=== PATIENT | male | born 1970 | race Caucasian/White ===

== ENCOUNTER 2017-11-20 05:02 | Inpatient (IN) ==
[2017-11-20 06:01] LABS: Basophils # 0.1 K/mcL (0.0-0.2); Basophils % 0.4 %; Eosinophils # 0.1 K/mcL (0.0-0.6); Eosinophils % 1.3 %; Hematocrit 44.3 % (37.5-50.1); Hemoglobin 15.7 g/dL (12.9-16.9); Immature Granulocytes % 0.2 % (0-4); Lymphocytes # 3.6 K/mcL (0.6-4.6); Mean Corpuscular HGB Conc 35.4 g/dL (31.6-35.5); Mean Corpuscular Hemoglobin 34.4 pg (28.0-33.3); Mean Corpuscular Volume 96.9 fL (83.0-100.0); Mean Platelet Volume 10.5 fL (9.4-12.4); Monocytes # 0.6 K/mcL (0.0-1.3); Monocytes % 5.5 %; Neutrophils # 6.8 K/mcL (1.6-8.9); Platelet Count 163 K/mcL (140-400); Red Blood Count 4.57 M/mcL (4.19-5.50); Red Cell Distribution Width 12.3 % (11.5-14.5); Segmented Neutrophils % 60.6 %
[2017-11-20] MEDS ORDERED: GI Cocktail 40 ML EACH PO ONE (06:03)
[2017-11-20] MEDS ORDERED: Aspirin 325 MG TABLET PO ONE (06:03)
[2017-11-20 06:07] LABS: Prothrombin Time 10.3 Seconds (9.4-12.1)
--- NOTE | 2017-11-20 06:08 | Emergency Department Note ---
Disposition Clinical Impression: NSTEMI (non-ST elevated myocardial infarction) Disposition: Admitted As Inpatient Condition: Good Referrals: Adriana Arana CNP [Primary Care Provider] - Forms: ED Satisfaction Letter Time of Disposition: 06:25 Chest Pain HPI - General Chief Complaint: ED Chest Pain Stated Complaint: chest tightness Source: patient Limitations: no limitations Vital Signs Reviewed: Yes Nursing Notes Reviewed: Yes - History of Present Illness HPI Narrative: This is a 47 year-old male with history of RA who presents with intermittent, "burning" substernal chest pain that began 1 day ago. Episodes last 5-15 minutes and seem to occur randomly, not clearly associated with exertion, breathing, or body position. At the time of evaluation, he is chest pain free. He denies any associated fever, cough, nausea, abdominal pain, or leg pain. He thought the pain might be heart burn, but Maalox didn't seem to help. He denies any history of HTN, DM, CAD, DVT, or PE. Pt complaint: chest pain Onset (ago): day(s) (1) Duration: intermittent Pain Location: substernal Severity: moderate Severity scale (1-10): 0 Quality: tightness (burning) Pain Radiation: back (interscapula) Improves with: nothing Worsens with: nothing Associated symptoms: Denies: nausea, vomiting, diaphoresis, sense of impending doom, syncope, palpitations, fever, cough, leg swelling - Related Data Allergies Allergy/AdvReac Type Severity Reaction Status Date / Time Penicillins Allergy See Verified 10/18/17 15:17 Comments All systems ED: reviewed and negative except as stated. Constitutional: Denies: fever Cardiovascular: Reports: as per HPI, chest pain, edema (bilateral pedal edema). Denies: palpitations Respiratory: Denies: cough, dyspnea Gastrointestinal: Denies: abdominal pain, nausea, vomiting Musculoskeletal: Reports: as per HPI Neurological: Denies: headache, weakness, numbness Chest Pain PMH - Past Medical History Medical history: Reports: arthritis, RA Psychiatric history: Reports: no psych history - Social History Smoking Status: Current every day smoker Alcohol use: Reports: rarely Drug use: Reports: none Physical Exam - General Limitations: no limitations General appearance: alert, in no apparent distress - Head Head exam: atraumatic, normocephalic - Eye Eye exam: Present: normal appearance - Neck Neck exam: Present: normal inspection - Chest Chest inspection: Present: normal inspection - Respiratory Respiratory exam: Present: normal lung sounds bilaterally. Absent: respiratory distress, wheezes - Cardiovascular Cardiovascular exam: Present: regular rate, normal rhythm, normal heart sounds - Abdominal Exam Abdominal exam: Present: soft, Non-Tender. Absent: distention - Extremities Exam Extremities exam: Present: normal inspection. Absent: calf tenderness - Neurological Exam Neurological exam: Present: alert, oriented X3. Absent: motor sensory deficit - Psychiatric Psychiatric exam: Present: normal affect, normal mood - Skin Skin exam: Present: warm, dry, intact Course - Reevaluation(s) Reevaluation #1: Patient remains CP-free. Discussed elevated troponin and treatment plan. Patient is in agreement with admission. Time: 06:33 - Consultations Consultation #1: Reviewed case with Dr. Yadav, and he has accepted patient for admission. Time: 06:36 Vital Signs Temperature 97.7 F 11/20/17 05:06 Pulse Rate 84 11/20/17 05:06 Respiratory Rate 18 11/20/17 05:06 Blood Pressure 142/92 11/20/17 05:06 O2 Sat by Pulse Oximetry 98 11/20/17 05:06 Temperature 97.7 F 11/20/17 05:06 Pulse Rate 84 11/20/17 05:06 Respiratory Rate 18 11/20/17 05:06 Blood Pressure 142/92 11/20/17 05:06 O2 Sat by Pulse Oximetry 98 11/20/17 05:06 Oxygen Delivery Oxygen Delivery Room Air Chest Pain - Lab Data Result diagrams: 11/20/17 05:21 11/20/17 05:21 Lab Results 11/20/17 11/20/17 11/20/17 Range/Units 05:21 05:21 05:21 WBC 11.2 H (4.3-11.1) K/mcL RBC 4.57 (4.19-5.50) M/mcL Hgb 15.7 (12.9-16.9) g/dL Hct 44.3 (37.5-50.1) % MCV 96.9 (83.0-100.0) fL MCH 34.4 H (28.0-33.3) pg MCHC 35.4 (31.6-35.5) g/dL RDW 12.3 (11.5-14.5) % Plt Count 163 (140-400) K/mcL MPV 10.5 (9.4-12.4) fL Immature Gran % 0.2 (0-4) % Seg Neutrophils % 60.6 % Lymphocytes % 32.0 % Monocytes % 5.5 % Eosinophils % 1.3 % Basophils % 0.4 % Neutrophils # 6.8 (1.6-8.9) K/mcL Lymphocytes # 3.6 (0.6-4.6) K/mcL Monocytes # 0.6 (0.0-1.3) K/mcL Eosinophils # 0.1 (0.0-0.6) K/mcL Basophils # 0.1 (0.0-0.2) K/mcL PT 10.3 (9.4-12.1) Seconds INR 1.0 APTT 53.7 H (26.0-36.0) Seconds Sodium 138 (136-145) mEq/L Potassium 4.1 (3.5-5.1) mEq/L Chloride 107 (98-107) mEq/L Carbon Dioxide 22 L (23-29) mEq/L BUN 15 (6-20) mg/dL Creatinine 0.99 (0.70-1.30) mg/dL Est GFR ( Amer) > 60 (> 60) Est GFR (Non-Af Amer) > 60 (> 60) BUN/Creatinine Ratio 15 (6-26) Glucose 107 H (70-105) mg/dL Calculated Osmolality 287 (280-300) Calcium 9.4 (8.6-10.3) mg/dL Troponin I 1.36 H* (< 0.04) ng/mL - Radiology Data Radiology results reviewed: Yes I reviewed the patient's radiology results. XR/XR chest 1V portable IMPRESSION: No acute cardiopulmonary disease. - EKG Data EKG attestation: Yes I reviewed and interpreted this EKG. EKG shows normal: sinus rhythm, axis, intervals, QRS complexes, ST-T waves Interpretation: normal EKG
[2017-11-20 06:09] LABS: Activated Partial Thrombo Time 53.7 Seconds (26.0-36.0)
[2017-11-20 06:21] LABS: BUN/Creatinine Ratio 15 (6-26); Blood Urea Nitrogen 15 mg/dL (6-20); Calcium 9.4 mg/dL (8.6-10.3); Carbon Dioxide 22 mEq/L (23-29); Chloride 107 mEq/L (98-107); Glucose 107 mg/dL (70-105); Osmolality,Calculated 287 (280-300); Potassium 4.1 mEq/L (3.5-5.1); Sodium 138 mEq/L (136-145); eGFR For African Americans > 60 (> 60); eGFR For Non-African Americans > 60 (> 60)
[2017-11-20 06:24] LABS: Troponin I 1.36 ng/mL (< 0.04)
[2017-11-20] MEDS ORDERED: *HR* Heparin 5,000 UNIT/ML VIAL IVP ONE ×2 (06:26→06:30)
[2017-11-20] MEDS ORDERED: Heparin 25,000 UNIT/500 ML D5W 25,000 UNIT/500 ML BAG IVC SCH (06:30)
[2017-11-20] MEDS ORDERED: *HR* OxyCODONE Immed Rel 15 MG TABLET PO PRN (07:29)
[2017-11-20] MEDS ORDERED: Acetaminophen 325 MG TABLET PO PRN (07:32)
[2017-11-20] MEDS ORDERED: Naloxone 0.4 MG/ML INJ IVP PRN (07:32)
[2017-11-20] MEDS: Nicotine 21 MG PATCH.TD24 TD SCH (09:27)
[2017-11-20] MEDS: 0.9 % Sodium Chloride 1,000 ML IVC SCH ×2 (09:28→21:43)
--- NOTE | 2017-11-20 09:47 | Internal Med History&Physical ---
Date of Encounter: 11/20/17 Time of Encounter: 07:37 Internal Medicine - H&P: HPI Chief complaint: "Chest pain" Admitted From: Emergency Dept Plans for Post Hospital Care: Home History of present illness: Mr. Hu is a 47 year old male with PMH of rheumatoid arthritis who presented to ED today with 2-day history of chest pain. He describes the pain as an intermittent "burning" substernal chest pain. Pain started suddenly yesterday and has been episodic. Pain radiates to back "between shoulder blades." There are no associated symptoms. He denies jaw pain, diaphoresis, or SOB. He has never had pain like this before. He is current 1.5 pack/day smoker. Mother had [place] in 30s. He initially thought the pain was heartburn, but maalox provided no relief. In the ED, EKG was NSR without any other changes. Initial troponin was elevated at 1.36. He had chest pain in ED earlier, but none at this time. CXR showed no acute cardiopulmonary process. He received aspirin and was started on heparin drip. He has no complaints at this time. Past Med Surg Social Fam HX - Past Medical History Attestation: Yes The following information was validated with the patient. Source: patient Medical history: arthritis, RA Psychiatric history: no psych history - Past Surgical History Surgical History: no surgical history Additional surgical history: bilateral hip replacement - Social History Smoking Status: Current every day smoker Packs per day: 1 Smokeless Tobacco Status: No Alcohol use: rarely Drug use: none - Family History Father Hx Family Cardiac Disorders: Yes Hx Family Cancer: Yes Mother Hx Family Cardiac Disorders: Yes Hx Family Endocrine Disorder: Yes - Additional Family History Additional family history: Family history reviewed with patient. Internal Medicine - H&P: Meds Celecoxib [Celebrex] 200 mg PO BID 11/20/17 [History] Certolizumab Pegol [Cimzia] 200 mg SQ QMONTH 11/20/17 [History] Cyclobenzaprine [Flexeril] 10 mg PO BID PRN 11/20/17 [History] Esomeprazole Magnesium [Nexium] 40 mg PO DAILY 11/20/17 [History] Oxycodone HCl [Oxycodone HCl] 15 mg PO TID PRN 11/20/17 [History] 3 Allergy/AdvReac Type Severity Reaction Status Date / Time Penicillins Allergy See Verified 11/20/17 06:51 Comments All Systems PM: A 10-system review of systems was performed and is negative for pertinent findings except as documented above in the HPI. - Constitutional Vitals: Temp Pulse Resp BP Pulse Ox 97.7 F 75 18 118/71 98 11/20/17 07:43 11/20/17 07:43 11/20/17 07:43 11/20/17 07:43 11/20/17 07:43 General appearance: Present: cooperative, A&O X 3, pleasant, no acute distress, answers questions appropriately - Head Head exam: Present: atraumatic, normal inspection, normocephalic - Eye Eye exam: Present: EOMI, PERRL. Absent: conjunctival injection, nystagmus, scleral icterus - ENT ENT exam: Present: mucous membranes moist, normal external ear exam, normal oropharynx - Neck Neck exam general surgery: Present: supple, trachea midline. Absent: lymphadenopathy, tenderness, thyromegaly - Respiratory Respiratory exam: Present: CTAB. Absent: accessory muscle use, rales, rhonchi, wheezes Additional comments: Normal WOB - Cardiovascular Cardiovascular exam: Present: RRR, +S1, +S2. Absent: diastolic murmur, gallop, rubs, systolic murmur Additional comments: No BLE edema - GI/Abdominal GI/Abdominal exam: Present: normal bowel sounds, soft. Absent: distended, hepatomegaly, mass, splenomegaly, tenderness - Neurological Exam Neurological exam: Present: alert, CN II-XII intact, oriented X3, no focal deficits, strengths equal and symetr throughout. Absent: motor sensory deficit , facial droop, speech deficit - Psychiatric Psychiatric exam: Present: normal affect, normal mood. Absent: agitated, anxious, depressed - Skin Skin exam: Present: dry, intact, warm. Absent: cyanosis, rash Internal Med - H&P Results - Labs CBC & Chem 7: 11/20/17 05:21 11/20/17 05:21 - Assessment and plan (1) NSTEMI (non-ST elevated myocardial infarction) Current Visit: Yes Status: Acute Assessment and plan: Admit for observation with telemetry. Initial troponin = 1.36. EKG unremarkable. Strong family history of CAD in mother at young age. Trend troponin x 3. Obtain ECHO. Continue aspirin and heparin drip. Cardiology consulted; appreciate input. Will await further recommendations. (2) Tobacco dependence Current Visit: Yes Status: Chronic Assessment and plan: Counselled for 5 minutes on smoking cessation. Start nicotine transdermal 21 mg QD. (3) Rheumatoid arthritis Current Visit: Yes Status: Chronic Assessment and plan: Continue home medications. Qualifiers: Rheumatoid arthritis location: unspecified site Rheumatoid factor presence : unspecified presence Qualified Code(s): M06.9 - Rheumatoid arthritis, unspecified (4) DVT prophylaxis Current Visit: Yes Status: Acute Assessment and plan: Heparin drip as per above. Start SCDs. - Time Spent With Patient Total time spent is greater than 50% in coordination of care (as documented) at patient's floor/unit and/or counseling patient: less than 15 minutes
--- NOTE | 2017-11-20 10:03 | Electrocardiograph Report ---
[place] [id number] Test Date: 2017-11-20 Pat Name: Gerry Hu Department: 103 Room: 2A11 Gender: M Vessel Engineer: SANTO : 1970 Requested By: Juan Martinez Order Number: [id number] Reading MD: Nick Parnell Measurements Intervals [place] Rate: 78 P: 64 PA: 181 QRS: 46 QRSD: 94 T: 11 QT: 359 QTc: 392 Interpretive Statements SINUS RHYTHM Electronically Signed On 11-20-2017 10:01:52 EDT by Nick Parnell
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
--- NOTE | 2017-11-20 11:34 | Pre-Sedation Evaluation ---
Pre-sedation evaluation - Pre-sedation checklist Date of procedure: 11/20/17 Procedure: [facility] Recent Vitals: Last Vital Signs Temp 97.7 F 11/20/17 07:43 Pulse 75 11/20/17 07:43 Resp 18 11/20/17 07:43 BP 118/71 11/20/17 07:43 Pulse Ox 98 11/20/17 07:43 H&P (including ROS) documented in medical record: Yes Previous reaction to sedatives/anesthetics: No Dietary Status: No solid food in preceding 4 hrs and no liquid in preceding 2 hrs Dentition: No loose teeth or bridges ASA Classification *see protocol: CLASS II-Mild systemic disease Plan of Care: Pt appropriate candidate for procedure/moderate/conscious sedation , Risks/benefits of procedure/sedation discussed w/ patient/family
[2017-11-20 12:57] LABS: Activated Partial Thrombo Time 175.9 Seconds (26.0-36.0)
[2017-11-20 13:16] LABS: Heparin anti-factor XA UFH 0.35 IU/mL (0.30-0.70)
[2017-11-20] MEDS ORDERED: Verapamil 5 MG/2 ML VIAL ONE (13:46)
[2017-11-20] MEDS ORDERED: 0.9 % Sodium Chloride 1,000 ML ONE ×2 (13:46→14:01)
[2017-11-20] MEDS ORDERED: *HR* Heparin 10,000 UNIT/10 ML VIAL ONE (13:47)
[2017-11-20] MEDS ORDERED: Heparin 1,000 UNITS/500 mL 500 ML ONE (13:47)
[2017-11-20] MEDS ORDERED: ISOVUE-370 200 ML INFUS..BTL IV ONE (13:47)
[2017-11-20] MEDS ORDERED: Nitroglycerin 1,000 MCG/10 ML VIAL IV ONE (13:47)
[2017-11-20] MEDS ORDERED: *HR* FentaNYL (PF) 100 MCG/2 ML VIAL ONE (14:06)
[2017-11-20] MEDS ORDERED: *HR* Midazolam HCl 2 MG/2 ML VIAL ONE ×3 (14:06→14:40)
[2017-11-20] MEDS ORDERED: Tirofiban 12.5 MG/250ML 12.5 MG/250 ML BAG ONE (14:36)
[2017-11-20] MEDS ORDERED: Ondansetron 4 MG/2 ML VIAL IVP PRN (14:58)
[2017-11-20] MEDS ORDERED: Tirofiban 12.5 MG/250ML 12.5 MG/250 ML BAG IVC SCH (15:00)
[2017-11-20] MEDS ORDERED: *HR* Ticagrelor 90 MG TABLET ONE (15:00)
--- NOTE | 2017-11-20 15:16 | Invasive Diagnostic Lab Proc ---
Name: Gerry Hu Date of Study: 11/20/2017 Date: 1970 Ht: 70.0in Medical Record#: [id number] Age: 47 Wt: 185.41lb Gender: Male BSA: 2.02 Order #: [id number] BMI: 26.6 Physicians Procedure Physician: Bubba Rodriguez MD, [facility] Referring MD: Referring MD: Staff Name Position Time In Nilson, Tyler RN Monitor 02:09 PM Jackie Stratton RN Agriculture Specialist 02:10 PM Kylah Fulton RT (R) Scrub 02:10 PM Sangeetha, Kylah RT (R) Scrub 02:11 PM Indications Indication Non-Stemi Procedures Performed Procedure L HRT ARTERY/VENTRICLE ANGIO PRQ CARD WINNIE STENT W/ANGIO 1 VSL Pre-Procedure Checklist Informed consent is complete signed and on chart. H&P is on chart. ID band is on and ID verified with patient. Patient NPO for procedure The procedure was described for the patient and questions were answered. Blood Pressure: 118/71 ECG is on chart. Plan of Care Patient will tolerate the procedure without complications. Adequate level of comfort will be maintained. Hemodynamics will remain stable Patient will recover from procedure without complications. Respiratory function will be maintained. Cardiac rhythm will remain stable. Patient temperature will be maintained. Patient and/or family have verbalized understanding of the procedure. Patient Education Chief Complaint/Reason for Test: Cardiac Cath Developmental Category: Adult (18-64 years) Developmentally Appropriate for Age: Yes Learning Barriers: None Education Needs: Procedure Education Method: Verbal Information Taught: Cardiac Cath Educational Evaluation: Able to repeat information Intravenous Access Time IV Size Location DC'd Fluid/Drip Rate Units RN 18g 1 /" Patent On Arrival Rt Antecubital 0.9NaCl Jackie Stratton RN Allergies Penicillin PCN Penicillins Vital Signs Time BP (mmHg) HR (bpm) O2 Sat. RR (bpm) LOC 10:19 AM 118 / 71 75 98 % 18 5 = Fully awake and oriented or at pre-proc level 02:12 PM / % 5 = Fully awake and oriented or at pre-proc level 02:12 PM / % 4 = Oriented but drowsy 02:27 PM / % 4 = Oriented but drowsy 02:42 PM / % 4 = Oriented but drowsy 02:10 PM 147 / 97 78 100 % 02:15 PM 152 / 92 88 100 % 02:20 PM 146 / 89 80 100 % 02:25 PM 131 / 80 81 99 % 02:30 PM 139 / 85 77 100 % 02:35 PM 142 / 91 79 100 % 02:41 PM 161 / 100 82 100 % 02:45 PM 143 / 88 78 100 % 02:50 PM 137 / 87 75 99 % Procedural Medications Time Medication Dose Units Method Given By 02:10 PM Oxygen 2 L/min nasal cannula Jackie Stratton RN 02:11 PM Versed 2 mg Intravenous Jackie Stratton RN 02:11 PM Fentanyl 50 mcg Intravenous Jackie Stratton RN 02:18 PM Lidocaine 2% 0.5 ml Subcutaneous Bubba Rodriguez MD, FAC 02:20 PM Heparin 4000 units Nitroglycerin 200 mcg Verapamil 2.5 mg Intraarterial Bubba Rodriguez MD, FAC 02:20 PM Versed 2 mcg Intravenous Jackie Stratton RN 02:20 PM Fentanyl 25 mcg Intravenous Jackie Stratton RN 02:38 PM Nitroglycerin 200 mcg Intracoronary Bubba Rodriguez MD 02:38 PM Aggrastat Bolus: 42 ml Intravenous Jackie Stratton RN 02:39 PM Aggrastat 12.5mg/250ml 15 ml/hr Intravenous Jackie Stratton RN 02:42 PM Versed 1 mg Intravenous Jackie Stratton RN 02:43 PM Fentanyl 25 mcg Intravenous Jackie Stratton RN 02:48 PM Brilinta 180 mg Orally Jackie Stratton RN ASA Classification: CLASS II- Mild systemic disease (i.e. well-controlled diabetes, hypertension, asthma, cigarette smoking) Abi Score Preprocedure Postprocedure Activity 2- Moves 4 extremities sustained head lift Activity 2- Moves 4 extremities sustained head lift Circulation 2- SBP +/= 20 points of pre-anesthetic level Circulation 2- SBP +/= 20 points of pre-anesthetic level Consciousness 2- Awake and alert oriented x 3 Consciousness 2- Awake and alert oriented x 3 O2 Saturation 2- Able to maintain O2 satruation of 92% on room air O2 Saturation 2- Able to maintain O2 satruation of 92% on room air Respiratory 2- Able to deep breathe and cough well Respiratory 2- Able to deep breathe and cough well Total Score 10 Total Score 10 Contrast Agent: Isovue Diagnostic Contrast: 76 ml Total Contrast: 76 ml Fluoro Dose: 365 mGy Activated Clotting Time Time Seconds to Clot 02:44 PM Procedure Log Time Note Enter By 02:01 PM Pt arrived to research laboratory specialist 2 at 14:01 tsites 02: PM Physician arrived 14: tsites 02: PM Meet and greet completed tsites 02: PM Sign in performed according to hospital policy. tsites 02:01 PM Procedure start 14: tsites 02: PM CathStat 02:09 PM Vitals capture started with the following parameters, Patient=Adult, Interval=5 min, Initial Fjaxyctw=749 mmHg, Deflation Rate=5 mmHg, Cuff placed on Right Arm 02:10 PM Tyler Devine RN Position: Monitor Time in: 14:09 tsites 02:10 PM Jackie Stratton RN Position: Agriculture Specialist Time in: 14:10 tsites 02:10 PM Kylah Fulton RT (R) Position: Scrub Time in: 14:10 tsites 02:10 PM Hair removed from procedure site in procedure lab using clippers. Right wrist/right groin prepped with Chloraprep by Jackie Stratton RN, then patient was draped. Skin intact. tsites 02:10 PM Time: 14:10 Oxygen on at 2 L/min per nasal cannula by Jackie Stratton RN tsites 02:10 PM HR=78 bpm, XOOW=026/97 mmhg, VbF8=696.0 %, Comment=nsr 02:10 PM Patient charges- Angio tray pack, Navilyst 3mm J, Pulse Oximetry and ACIST tubing and transducer tsites 02:11 PM Time: 14:11 Versed 2 mg Intravenous Given by Jackie Stratton RN tsites 02:11 PM Time: 14:11 Fentanyl 50 mcg Intravenous Given by Jackie Stratton RN tsites 02:11 PM Kylah Vivas RT (R) Position: Scrub Time in: 14:11 tsites 02:12 PM Time: 14:12 Patient comfortable and pain free: Yes tsites 02:12 PM Time: 14:12LOC: 5 = Fully awake and oriented or at pre-proc level tsites 02:12 PM Clinical Presentation: Non-STEMI tsites 02:15 PM HR=88 bpm, PTQC=814/92 mmhg, KjJ2=335.0 %, Comment=nsr 02:16 PM Time out performed according to hospital policy tsites 02:18 PM Time: 14:18 0.5 ml Lidocaine 2% to right radial Subcutaneous Given by Bubba Rodriguez MD, [facility] tsites 02:18 PM ASA Class CLASS II- Mild systemic disease (i.e. well-controlled diabetes, hypertension, asthma, cigarette smoking) tsites 02:20 PM Access obtained by percutaneous puncture. 6Fr 11cm Terumo Glidesheath sheath placed in right Radial artery. [id number] tsites 02:20 PM Time: 14:20 Patient given 4,000 units Heparin, 200 mcg Nitroglycerin, and 2.5 mg Verapamil Intraarterial by Bubba Rodriguez MD, [facility]. This is given to reduce risk of vessel spasm and thrombosis. tsites 02:20 PM HR=80 bpm, FTHE=927/89 mmhg, TeM3=036.0 %, Comment=nsr 02:20 PM Time: 14:20 Versed 2 mcg Intravenous Given by Jackie Stratton RN tsites 02:20 PM Time: 14:20 Fentanyl 25 mcg Intravenous Given by Jackie Stratton RN tsites 02:20 PM 5Fr TIG catheter inserted over the wire [facility] tsites 02:20 PM Pressure channel 1 zeroed. 02:23 PM LCA angiography performed in multiple views. tsites 02:23 PM Recorded Pressure: Ao, HR=83, Condition=Condition 1 (Aorta) Ao 93/70/81 02:24 PM catheter repositioned to RCA tsites 02:25 PM RCA angiography performed in multiple views. tsites 02:25 PM HR=81 bpm, BCKT=178/80 mmhg, SpO2=99.0 %, Comment=nsr 02:25 PM Lesion found in Mid RCA. Pre Stenosis: 99 Pre MICHELINE Flow: 2: Partial Flow/Perfusion (> 1 but < 3) tsites 02:26 PM Right Coronary, Right Posterior Descending Arteries with Right Posterolateral and Acute Marginal branches with 99 % stenosis. If graft is supplying this area, 0 % stenosis tsites 02:26 PM PCI Status Urgent tsites 02:26 PM PCI Indication: PCI for high risk Non-STEMI or unstable angina tsites 02:26 PM Catheter removed tsites 02:26 PM Inflation device was opened. tsites 02:27 PM Time: 14:12LOC: 4 = Oriented but drowsy tsites 02:27 PM Time: 14:12 Patient comfortable and pain free: Yes tsites 02:28 PM 5Fr Pigtail catheter inserted over the wire DNC tsites 02:29 PM Catheter selectively placed in left ventricle tsites 02:29 PM Recorded Pressure: LV, HR=84, Condition=Condition 1 (Left Ventricle) LV 108/-6/1 02:29 PM Bolus angiogram of left Ventricle complete: 10 ml/sec for a total of 20 mls tsites 02:30 PM .014 [place] 190cm guide wire across target lesion- successful. reused? No tsites 02:30 PM HR=77 bpm, PFQT=616/85 mmhg, DoS4=918.0 %, Comment=nsr 02:30 PM 6Fr RBR 3.5 Convey guide catheter was used to cannulate the PCI vessel successfully. reused? No tsites 02:30 PM Pressure channel 1 zero failed. 02:30 PM Pressure channel 1 zero failed. 02:30 PM Pressure channel 1 zeroed. 02:30 PM Recorded Pressure: LV, HR=83, Condition=Condition 1 (Left Ventricle) LV 134/16/23 02:31 PM Recorded Pressure: LV, Ao, HR=82, Condition=Condition 1 (Left Ventricle) LV 138/19/27, (Aorta) Ao 139/92/113 02:32 PM Lesion found in Mid LAD. Pre Stenosis: 40 Pre MICHELINE Flow: tsites 02:32 PM Lesion found in Distal LAD. Pre Stenosis: 60 Pre MICHELINE Flow: tsites 02:32 PM Mid/Distal Left Anterior Descending Coronary Artery and diagonal branches with 60% stenosis. If graft is supplying this area, 0 % stenosis tsites 02:33 PM Recorded Pressure: Ao, HR=79, Condition=Condition 1 (Aorta) Ao 136/99/115 02:35 PM HR=79 bpm, NMVE=126/91 mmhg, TiI2=826.0 %, Comment=nsr 02:35 PM At 14:35 the ACT was >400 seconds. tsites 02:35 PM 2.0 mm x 15 mm Emerge Monorail balloon across target lesion- successful. reused? No tsites 02:37 PM Recorded Pressure: Ao, HR=83, Condition=Condition 1 (Aorta) Ao 128/98/112 02:37 PM Balloon inflated @ 10 anuj for 12 seconds tsites 02:38 PM Time: 14:38 Nitroglycerin 200 mcg Intracoronary Given by Bubba Rodriguez MD tsites 02:39 PM Time: 14:38 Aggrastat Bolus: 42 ml Intravenous Given by Jackie Stratton RN Patterson pump tsites 02:40 PM Time: 14:39 Aggrastat 12.5mg/250ml 15 ml/hr Intravenous Given by Jackie Stratton RN Patterson pump tsites 02:40 PM Balloon catheter removed intact. tsites 02:41 PM HR=82 bpm, TQMF=876/100 mmhg, SxY8=537.0 %, Comment=nsr 02:41 PM 3.0mm x 20mm Synergy drug-eluting stent across target lesion- successful Lot #[id number] tsites 02:41 PM Stent deployed @ 15 anuj for 23 seconds tsites 02:42 PM Time: 14:27 Patient comfortable and pain free: Yes tsites 02:42 PM Time: 14:27LOC: 4 = Oriented but drowsy tsites 02:43 PM Time: 14:42 Versed 1 mg Intravenous Given by Jackie Stratton RN tsites 02:43 PM Time: 14:43 Fentanyl 25 mcg Intravenous Given by Jackie Stratton RN tsites 02:43 PM Stent delivery system removed intact. tsites 02:44 PM Guide catheter removed intact. tsites 02:44 PM Guide wire removed intact. tsites 02:45 PM HR=78 bpm, JYHV=475/88 mmhg, OvB2=125.0 %, Comment=nsr 02:46 PM Procedure completed at 14:46 tsites 02:46 PM Did you address MICHELINE flow and Dominance? Yes tsites 02:47 PM Coronary Dominance: right tsites 02:48 PM Sign out completed: Radiation Dose 365 mGy Fluoro Time: 4.3 Isovue 370 - 200ml contrast 76 ml given by Bubba Rodriguez MD, [facility]. Complications: NoneCardiac Rehab Consult needed: YesConfirmed administered medications: Yes tsites 02:48 PM Time: 14:48 Brilinta 180 mg Orally Given by Jackie Stratton RN tsites 02:49 PM Isovue 370 - 200ml,1 Bottle(s) used. tsites 02:49 PM Arterial sheath pulled, Vasc Band closure device used and was Successful S/N. tsites 02:49 PM 12 ml air in Vasc Band. tsites 02:49 PM Estimated Blood Loss: less than 20cc tsites 02:49 PM Post ECG NSR tsites 02:49 PM Post Blood Pressure 143/88 tsites 02:49 PM 14:49 Post Pulses Bilateral DP & PT 2+ tsites 02:50 PM Information taught Cardiac Cath, PCI, and Vasc Band tsites 02:50 PM HR=75 bpm, CJOG=881/87 mmhg, SpO2=99.0 %, Comment=nsr 02:50 PM Education needs Procedure, Plan of Care, and Responsibilities of Patient in Care tsites 02:50 PM Learning barriers :None tsites 02:53 PM Education Methods Verbal tsites 02:53 PM Education evaluation Able to repeat information tsites 02:53 PM Site status No bleeding/hematoma - Rt Wrist as reported by Sites, Kylah RT (R) at 14:53 tsites 02:55 PM Report given to Sravani DOMINGUEZ Pt taken to 2A Room #11. 14:54 tsites 02:55 PM Plavix, Effient or Brilinta given Yes tsites 02:55 PM Patient out of room: 14:55 tsites 02:55 PM Family placed in consult room. tsites 02:55 PM Complications: None tsites 02:55 PM Fluoro Time: 4.3 tsites 02:58 PM Isovue 370 - 200ml contrast 76 ml given by Bubba Rodriguez. tsites 02:58 PM Time: 14:42LOC: 4 = Oriented but drowsy tsites 02:58 PM Time: 14:42 Patient comfortable and pain free: Yes tsites 02:58 PM Radiation Dose 365 mGy tsites 03:04 PM Lesion found in Right PDA. Pre Stenosis: 80 Pre MICHELINE Flow: tsites Complications Complication None None Hemodynamics Pressures Site Systolic/A Wave Diastolic/V Wave Mean AO 93 70 81 LV 108 -6 1 LV 134 16 23 LV 138 19 27 AO 139 92 113 AO 136 99 115 AO 128 98 112 Post Procedure Information Blood Pressure: 143/88 mmHg Rhythm: NSR Post procedural instructions were given Closure Device Time Device Success/Fail 11/20/2017 2:45:00 PM Mechanical Compression Successful Site Checks Time Location Status Staff Sheath In? Note 02:53 PM Rt Wrist No bleeding/hematoma Sites, Kylah RT (R) Pulses Time Site Pre-Procedure Post-Procedure Note 11/20/2017 10:18:00 AM Bilateral DP 2+ 11/20/2017 10:19:00 AM Bilateral radial 2+ 2:49:00 PM Bilateral DP & PT 2+ Updated by Kylah Vivas, RT (R) on 11/20/2017 3:07:33 PM Kylah Vivas RT electronically signed on 11/20/2017 3:08:35 PM with status of Final
[2017-11-20 18:33] LABS: Troponin I 5.79 ng/mL (< 0.04)
[2017-11-20] MEDS: *HR* Ticagrelor 90 MG TABLET PO SCH (21:43)
[2017-11-21 00:42] LABS: Basophils % 0.4 %; Eosinophils # 0.1 K/mcL (0.0-0.6); Eosinophils % 1.4 %; Hematocrit 39.2 % (37.5-50.1); Immature Granulocytes % 0.2 % (0-4); Lymphocytes # 3.2 K/mcL (0.6-4.6); Lymphocytes % 38.1 %; Mean Corpuscular HGB Conc 34.9 g/dL (31.6-35.5); Mean Corpuscular Hemoglobin 33.8 pg (28.0-33.3); Mean Corpuscular Volume 96.8 fL (83.0-100.0); Mean Platelet Volume 10.4 fL (9.4-12.4); Monocytes # 0.5 K/mcL (0.0-1.3); Monocytes % 6.2 %; Neutrophils # 4.5 K/mcL (1.6-8.9); Platelet Count 151 K/mcL (140-400); Red Blood Count 4.05 M/mcL (4.19-5.50); Red Cell Distribution Width 12.3 % (11.5-14.5); Segmented Neutrophils % 53.7 %
[2017-11-21 00:49] LABS: Hemoglobin 13.7 g/dL (12.9-16.9); Prothrombin Time 10.8 Seconds (9.4-12.1)
[2017-11-21 00:52] LABS: Activated Partial Thrombo Time 48.7 Seconds (26.0-36.0)
[2017-11-21 01:21] LABS: BUN/Creatinine Ratio 16 (6-26); Blood Urea Nitrogen 13 mg/dL (6-20); Calcium 8.9 mg/dL (8.6-10.3); Carbon Dioxide 19 mEq/L (23-29); Chloride 109 mEq/L (98-107); Glucose 149 mg/dL (70-105); Magnesium 1.9 mg/dL (1.6-2.6); Osmolality,Calculated 287 (280-300); Sodium 137 mEq/L (136-145); eGFR For African Americans > 60 (> 60); eGFR For Non-African Americans > 60 (> 60)
[2017-11-21 01:29] LABS: Chol/HDL Ratio 7.8 (0-4.9); Cholesterol 266 mg/dL (< 200); HDL Cholesterol 34 mg/dL (40-59); Triglycerides 583 mg/dL (< 150)
[2017-11-21] MEDS: *HR* Ticagrelor 90 MG TABLET PO SCH (08:22)
[2017-11-21] MEDS: Nicotine 21 MG PATCH.TD24 TD SCH (08:23)
--- NOTE | 2017-11-21 08:48 | Cardiology Progress Note ---
Date of Encounter: 11/21/17 Time of Encounter: 08:45 Assessment and Plan (1) NSTEMI (non-ST elevated myocardial infarction) Current Visit: Yes Status: Acute Troponins 1.36, 2.86, 5.79, 5.06. LHC yesterday WINNIE to mRCA. EF appeared mildly reduced on LHC ~45%. DAPT (ASA and Brilinta) uninterrupted x 1 year. Pt verbalizes understanding. BB , ACEi, and Statin added. TTE to evaluate structure and function--pending. Right radial access site healing well. No bleeding, hematoma or ecchymosis noted. Restrictions discussed. Follow-up in 1 week with cardiology--will coordinate. Cardiology signing off. Reconsult PRN. (2) CAD (coronary artery disease) Current Visit: Yes Status: Acute As above, NSTEMI and s/p WINNIE to mRCA. ASA, Brilinta, Statin, BB, ACEi. Qualifiers: Coronary Disease-Associated Artery/Lesion type: [place] artery [place] vs. transplanted heart: [place] heart Associated angina: angina presence unspecified Qualified Code(s): I25.10 - Atherosclerotic heart disease of [place]nee coronary artery without angina pectoris (3) Cardiomyopathy Current Visit: Yes Status: Acute Mildly reduced EF on LHC 45%--s/p NSTEMI and WINNIE to mRCA. Euvolemic on exam. BB and ACEi started. Qualifiers: Cardiomyopathy type: ischemic Qualified Code(s): I25.5 - Ischemic cardiomyopathy (4) Tobacco dependence Current Visit: Yes Status: Chronic 1.5 PPD x 20 years. Smoking cessation counseling given. Nicotine patch in place. Discussion w patient/family: The assessment and plan as outlined above was discussed with the patient and/or family members who expressed understanding and agreement. All questions were answered. Thank you for involving us in the care of your patient. Please call with any questions. I will discuss all the above with Dr. Farias and make changes as necessary. Subjective Principal diagnosis: NSTEMI Interval history: S/P LHC yesterday for NSTEMI. Peak troponin 5.79. PTCA/WINNIE to mRCA. Pt denies acute complaints this AM--denies chest pain or dyspnea. TTE pending. On LHC EF appeared reduced ~45%. Objective Vital Signs, Last 4 Hours Temp Pulse Resp BP Pulse Ox 11/21/17 07:26 97.9 F 79 17 120/75 97 Vital Signs Temp Pulse Resp BP Pulse Ox 11/21/17 07:26 97.9 F 79 17 120/75 97 11/21/17 03:58 98.6 F 75 17 124/80 95 11/20/17 23:22 97.8 F 77 18 119/75 97 11/20/17 19:46 98.4 F 84 17 122/78 98 11/20/17 16:42 97.4 F L 72 16 122/84 99 11/20/17 15:45 113/79 11/20/17 15:30 76 119/80 11/20/17 15:15 78 124/83 11/20/17 11:52 97.8 F 72 16 122/77 98 Intake and Output 11/20/17 11/21/17 11/21/17 23:59 07:59 15:59 Intake Total 1120 / 1120 240 / 240 800 / 800 Balance 1120 / 1120 240 / 240 800 / 800 Intake: IV Fluids 1000 / 1000 800 / 800 0.9 % Sodium Chloride 1,000 ML 1000 / 1000 800 / 800 @ 75 mls/hr IVC .[id number] PHILIP Rx #:[id number] Oral 120 / 120 240 / 240 Other: Meal Dinner Percent of Meal Consumed 90% # Voids 2 Weight 88.564 kg General: Conversant, No Apparent Distress HEENT: Atraumatic, Normocephaly, Mucus Membranes Moist Neck: No JVD, Normal carotid pulses Cardiac: Reg Rate and Rhythm, Normal S1 and S2, No Murmur Lungs: Normal Breath Sounds, No Wheeze, Rales, Rhonchi Neuro: Alert and responsive, No focal deficits noted Abdomen: Soft, Non-Tender Skin: Other (right radial access site healing well. No bleeding, hematoma or ecchymosis noted.) Musculoskeletal: No Chest Wall Tenderness Extremities: No Clubbing, No Cyanosis, No Edema, Normal Pulses Results 11/21/17 00:20 11/21/17 00:20 Lab Results 11/20/17 11/21/17 11/21/17 17:31 00:20 00:20 WBC 8.3 Hgb 13.7 D Hct 39.2 Plt Count 151 INR APTT Sodium Potassium Chloride Carbon Dioxide BUN Creatinine Glucose Calcium Magnesium Troponin I 5.79 H* 5.06 H* B-Natriuretic Peptide 11/21/17 11/21/17 11/21/17 00:20 00:20 00:20 WBC Hgb Hct Plt Count INR 1.0 APTT 48.7 H D Sodium 137 Potassium 4.0 Chloride 109 H Carbon Dioxide 19 L BUN 13 Creatinine 0.80 Glucose 149 H Calcium 8.9 Magnesium 1.9 Troponin I B-Natriuretic Peptide 143 H Short CBC 11/21/17 Range/Units 00:20 WBC 8.3 (4.3-11.1) K/mcL Hgb 13.7 D (12.9-16.9) g/dL Hct 39.2 (37.5-50.1) % Plt Count 151 (140-400) K/mcL Neutrophils # 4.5 (1.6-8.9) K/mcL BMP 11/21/17 Range/Units 00:20 Sodium 137 (136-145) mEq/L Potassium 4.0 (3.5-5.1) mEq/L Chloride 109 H (98-107) mEq/L Carbon Dioxide 19 L (23-29) mEq/L BUN 13 (6-20) mg/dL Creatinine 0.80 (0.70-1.30) mg/dL Glucose 149 H (70-105) mg/dL Calcium 8.9 (8.6-10.3) mg/dL Cardiac Enzymes 11/21/17 11/20/17 11/20/17 Range/Units 00:20 17:31 10:43 Troponin I 5.06 H* 5.79 H* 2.86 H* (< 0.04) ng/mL Active Medications Acetaminophen (Tylenol) 650 mg PO Q6HR PRN PRN Reason: Mild Pain/Fever Stop: 05/22/18 07:33 Aspirin (Aspirin) 81 mg PO DAILY [facility] Stop: 05/23/18 09:01 Last Admin: 11/21/17 08:21 Dose: 81 mg Atorvastatin Calcium (Lipitor) 40 mg PO HS [facility] Stop: 05/23/18 21:01 Cyclobenzaprine HCl (Flexeril) 10 mg PO BID PRN PRN Reason: MUSCLE SPASMS Stop: 05/22/18 07:30 Sodium Chloride (0.9 % Sodium Chloride) 1,000 mls @ 75 mls/hr IVC .[id number] [facility] Stop: 05/22/18 07:46 Last Infusion: 11/21/17 08:26 Dose: 75 mls/hr Lisinopril (Zestril) 2.5 mg PO DAILY [facility] PRN Reason: Protocol Stop: 05/23/18 09:01 Last Admin: 11/21/17 08:22 Dose: 2.5 mg Metoprolol Succinate (Toprol Xl) 25 mg PO DAILY [facility] Stop: 05/23/18 09:01 Last Admin: 11/21/17 08:21 Dose: 25 mg Naloxone HCl (Narcan) 0.4 mg IVP Q2MIN PRN PRN Reason: SEE COMMENTS Stop: 05/22/18 07:33 Nicotine (Nicoderm) 21 mg TD DAILY [facility] PRN Reason: Protocol Stop: 05/22/18 09:01 Last Admin: 11/21/17 08:23 Dose: 21 mg Omeprazole (Prilosec) 40 mg PO 0630 [facility] Stop: 05/22/18 09:01 Last Admin: 11/21/17 06:16 Dose: 40 mg Ondansetron HCl (Zofran) 4 mg IVP Q6HR PRN; Protocol PRN Reason: Nausea And Vomiting Stop: 05/22/18 14:59 Oxycodone HCl (Roxicodone) 15 mg PO TID PRN; Protocol PRN Reason: Severe Pain Stop: 05/22/18 07:30 Ticagrelor (Brilinta) 90 mg PO BID [facility] Stop: 05/22/18 21:01 Last Admin: 11/21/17 08:22 Dose: 90 mg - Imaging and Cardiology Echo: pending Cardiac cath: report reviewed - EKG Interpretation EKG results cardiology: other (12 hr tele AVG HR 81, SR, no significant pauses or arrhythmias) Consult Discharge Plan - Plan Additional Instructions: RISK FACTORS: STOP SMOKING: If you smoke, STOP. Smoking or tobacco use significantly increases your risk of heart disease because nicotine causes the arteries to narrow or constrict. It also causes fats to stick to the artery. Your chances of having a heart attack are greatly increased if you continue to smoke. For more information, call the education line for smoking cessation 6-097-TVNMQIG EAT A LOW FAT/CHOLESTEROL/SODIUM DIET: This diet may help reduce your chances of having a heart attack. LIFTING: With affected extremity: Avoid bending, pushing off and lifting more than 2 pounds for 24 hours The following 48 hours, avoid lifting anything more than 5 pounds Avoid strenuous activity or repetitive motions ACTIVITY: You may walk or climb stairs as tolerated You can resume sexual activity as tolerated In general, you are encouraged to engage in a minimum of 30 minutes or more of moderate intensity physical activity, such as brisk walking, daily or at least 3 -4 times weekly BATHING Do not submerge the site into water (bath tub, hot tub, swimming pool, dishes) for 1 week. This can be a source for infection into the blood stream. You may shower after 24 hours SITE CARE: After 24 hours, you may remove the dressing and leave the site open to air. Keep the site clean and dry. Clean gently and pat dry. You can expect bruising and tenderness that gradually resolve within a week or two. Return to work as instructed per your physician Resume driving as instructed per physician Keep all scheduled follow up appointments Resume medications as instructed IMPORTANT: If prescribed a Platelet Aggregation Inhibitor such as, Plavix, Brilinta or Effient: Duration of therapy is minimum one year These medications are often used in combination with Aspirin in prevention of future heart attacks Never discontinue unless consult with your Driveway Attendant STROKE (CVA) Risk factors for a stroke are: Age, cigarette smoking, diabetes, excessive alcohol consumption, family history, high blood pressure, overweight, physical inactivity, prior stroke, heart attack, diagnosis of carotid artery stenosis or other artery disease. Warning signs: Sudden numbness or weakness of the face, arm or leg; especially on one side of the body, sudden confusion, trouble speaking or understanding, sudden trouble seeing in one or both eyes, sudden trouble walking, dizziness, loss of balance or coordination, sudden severe headache with no cause. Call 911 or go to the Emergency Room. CONGESTIVE HEART FAILURE: If you have been diagnosed with Congestive Heart Failure (CHF) and your symptoms return, make an appointment with your physician Weigh yourself daily. Notify your physician if you have a weight gain of two or more pounds in one day or five or more pounds in one week. If you experience any difficulty breathing, please call 911 BLEEDING: Although the risk of bleeding is minimal, it can happen. If you have any bleeding from the site, apply firm pressure above the puncture site for 10-15 minutes. If the bleeding does not stop, continue manual pressure and call 911 Contact [facility] ( ) if: You develop a fever greater than 101 degrees Fahrenheit Your site becomes reddened or has any drainage You have an increase in pain or burning at the site or if a large knot forms at the site. If you experience chest pain, shortness of breath, dizziness, or extreme tiredness, stop the activity and rest. Please notify [facility] office if you experience any of these symptoms and they are not relieved by rest please call 911! Referrals: Adriana Arnaa, [employer] [Primary Care Provider] -
[2017-11-21] MEDS ORDERED: Aspirin 81 MG TAB.CHEW PO SCH (09:00)
[2017-11-21] MEDS ORDERED: Metoprolol XL (24 HR) Succ 25 MG TAB.ER.24H PO SCH (09:00)
[2017-11-21 11:11] VITALS: BP 122/76
--- NOTE | 2017-11-21 12:39 | Discharge Summary ---
- NOTES TO OUTPATIENT PROVIDER Notes to Outpatient Provider: This patient who has underlying Rheumatoid arthritis was admitted to the hospital with chest pain. We made diagnosis of an STEMI. The patient underwent cardiac catheterization. One stent was put into middle portion of RCA. The patient is started on Toprol-XL, lisinopril, Lipitor, Brillinta and aspirin. Follow-up with cardiology in 1 week. Date of Encounter: 11/21/17 Time of Encounter: 12:35 - Discharge Diagnosis (1) NSTEMI (non-ST elevated myocardial infarction) Status: Acute (2) CAD (coronary artery disease) Status: Acute Qualifiers: Coronary Disease-Associated Artery/Lesion type: [place] artery [place] vs. transplanted heart: [place] heart Associated angina: angina presence unspecified Qualified Code(s): I25.10 - Atherosclerotic heart disease of [place] coronary artery without angina pectoris (3) Acute systolic heart failure Status: Acute (4) Rheumatoid arthritis Status: Chronic Qualifiers: Rheumatoid arthritis location: unspecified site Rheumatoid factor presence : unspecified presence Qualified Code(s): M06.9 - Rheumatoid arthritis, unspecified (5) Tobacco dependence Status: Chronic Hospital course: Mr. Hu is a 47 year old male Time spent discussing smoking cessation with patient: 3 to 10 minutes - Time Spent with Patient Total time spent providing and/or coordinating discharge services: Greater than 30 minutes (40 minutes) - Discharge Medications Prescriptions: Lisinopril [Zestril] 5 mg PO DAILY #30 tablet Home Medications: Celecoxib [Celebrex] 200 mg PO BID 11/20/17 [History] Certolizumab Pegol [Cimzia] 200 mg SQ QMONTH 11/20/17 [History] Cyclobenzaprine [Flexeril] 10 mg PO BID PRN 11/20/17 [History] Esomeprazole Magnesium [Nexium] 40 mg PO DAILY 11/20/17 [History] Oxycodone HCl 15 mg PO TID PRN 11/20/17 [History] Aspirin 81 mg PO DAILY tab.chew 11/21/17 [Rx] Atorvastatin [Lipitor] 80 mg PO HS tablet 11/21/17 [Rx] Lisinopril [Zestril] 5 mg PO DAILY #30 tablet 11/21/17 [Rx] Metoprolol XL (24 HR) Succ [Toprol Xl] 25 mg PO DAILY tab.er.24h 11/21/17 [Rx] Ticagrelor [Brilinta] 90 mg PO BID tablet 11/21/17 [Rx] Allergies/Adverse Reactions: 3 Allergy/AdvReac Type Severity Reaction Status Date / Time Penicillins Allergy See Verified 11/20/17 06:51 Comments Date of admission: 11/20/17 16:52 Primary care physician: Adriana Arana CNP Discharging clinician: Yao Reagan Anticipated date of discharge: 11/21/17 - Constitutional Vitals: Temp Pulse Resp BP Pulse Ox 98.0 F 83 18 122/76 99 11/21/17 11:10 11/21/17 11:10 11/21/17 11:10 11/21/17 11:10 11/21/17 11:10 General appearance: Present: cooperative, A&O X 3, pleasant, no acute distress, answers questions appropriately - Patient Status Disposition: Home, Self-Care Condition: Good - Discharge Instructions Instructions: Lisinopril (By mouth), Myocardial Infarction (DC), Coronary Artery Disease (GEN), Right Heart Catheterization (DC) Follow Up With: Adriana Arana CNP [Primary Care Provider] - 11/27/17 1:00 pm (Please follow up as schedule...) Adilson Vyas CNP [Advanced Practice Nurse] - (will call patient for an appointment) Additional Instructions: RISK FACTORS: STOP SMOKING: If you smoke, STOP. Smoking or tobacco use significantly increases your risk of heart disease because nicotine causes the arteries to narrow or constrict. It also causes fats to stick to the artery. Your chances of having a heart attack are greatly increased if you continue to smoke. For more information, call the education line for smoking cessation 9-372-XXAJEZH EAT A LOW FAT/CHOLESTEROL/SODIUM DIET: This diet may help reduce your chances of having a heart attack. LIFTING: With affected extremity: Avoid bending, pushing off and lifting more than 2 pounds for 24 hours The following 48 hours, avoid lifting anything more than 5 pounds Avoid strenuous activity or repetitive motions ACTIVITY: You may walk or climb stairs as tolerated You can resume sexual activity as tolerated In general, you are encouraged to engage in a minimum of 30 minutes or more of moderate intensity physical activity, such as brisk walking, daily or at least 3 -4 times weekly BATHING Do not submerge the site into water (bath tub, hot tub, swimming pool, dishes) for 1 week. This can be a source for infection into the blood stream. You may shower after 24 hours SITE CARE: After 24 hours, you may remove the dressing and leave the site open to air. Keep the site clean and dry. Clean gently and pat dry. You can expect bruising and tenderness that gradually resolve within a week or two. Return to work as instructed per your physician Resume driving as instructed per physician Keep all scheduled follow up appointments Resume medications as instructed IMPORTANT: If prescribed a Platelet Aggregation Inhibitor such as, Plavix, Brilinta or Effient: Duration of therapy is minimum one year These medications are often used in combination with Aspirin in prevention of future heart attacks Never discontinue unless consult with your Truck Rental Manager STROKE (CVA) Risk factors for a stroke are: Age, cigarette smoking, diabetes, excessive alcohol consumption, family history, high blood pressure, overweight, physical inactivity, prior stroke, heart attack, diagnosis of carotid artery stenosis or other artery disease. Warning signs: Sudden numbness or weakness of the face, arm or leg; especially on one side of the body, sudden confusion, trouble speaking or understanding, sudden trouble seeing in one or both eyes, sudden trouble walking, dizziness, loss of balance or coordination, sudden severe headache with no cause. Call 911 or go to the Emergency Room. CONGESTIVE HEART FAILURE: If you have been diagnosed with Congestive Heart Failure (CHF) and your symptoms return, make an appointment with your physician Weigh yourself daily. Notify your physician if you have a weight gain of two or more pounds in one day or five or more pounds in one week. If you experience any difficulty breathing, please call 911 BLEEDING: Although the risk of bleeding is minimal, it can happen. If you have any bleeding from the site, apply firm pressure above the puncture site for 10-15 minutes. If the bleeding does not stop, continue manual pressure and call 911 Contact [facility] ( ) if: You develop a fever greater than 101 degrees Fahrenheit Your site becomes reddened or has any drainage You have an increase in pain or burning at the site or if a large knot forms at the site. If you experience chest pain, shortness of breath, dizziness, or extreme tiredness, stop the activity and rest. Please notify [facility] office if you experience any of these symptoms and they are not relieved by rest please call 911!RISK FACTORS: STOP SMOKING: If you smoke, STOP. Smoking or tobacco use significantly increases your risk of heart disease because nicotine causes the arteries to narrow or constrict. It also causes fats to stick to the artery. Your chances of having a heart attack are greatly increased if you continue to smoke. For more information, call the education line for smoking cessation 1-492-NNHQCCQ EAT A LOW FAT/CHOLESTEROL/SODIUM DIET: This diet may help reduce your chances of having a heart attack. LIFTING: With affected extremity: Avoid bending, pushing off and lifting more than 2 pounds for 24 hours The following 48 hours, avoid lifting anything more than 5 pounds Avoid strenuous activity or repetitive motions ACTIVITY: You may walk or climb stairs as tolerated You can resume sexual activity as tolerated In general, you are encouraged to engage in a minimum of 30 minutes or more of moderate intensity physical activity, such as brisk walking, daily or at least 3 -4 times weekly BATHING Do not submerge the site into water (bath tub, hot tub, swimming pool, dishes) for 1 week. This can be a source for infection into the blood stream. You may shower after 24 hours SITE CARE: After 24 hours, you may remove the dressing and leave the site open to air. Keep the site clean and dry. Clean gently and pat dry. You can expect bruising and tenderness that gradually resolve within a week or two. Return to work as instructed per your physician Resume driving as instructed per physician Keep all scheduled follow up appointments Resume medications as instructed IMPORTANT: If prescribed a Platelet Aggregation Inhibitor such as, Plavix, Brilinta or Effient: Duration of therapy is minimum one year These medications are often used in combination with Aspirin in prevention of future heart attacks Never discontinue unless consult with your Truck Rental Manager STROKE (CVA) Risk factors for a stroke are: Age, cigarette smoking, diabetes, excessive alcohol consumption, family history, high blood pressure, overweight, physical inactivity, prior stroke, heart attack, diagnosis of carotid artery stenosis or other artery disease. Warning signs: Sudden numbness or weakness of the face, arm or leg; especially on one side of the body, sudden confusion, trouble speaking or understanding, sudden trouble seeing in one or both eyes, sudden trouble walking, dizziness, loss of balance or coordination, sudden severe headache with no cause. Call 911 or go to the Emergency Room. CONGESTIVE HEART FAILURE: If you have been diagnosed with Congestive Heart Failure (CHF) and your symptoms return, make an appointment with your physician Weigh yourself daily. Notify your physician if you have a weight gain of two or more pounds in one day or five or more pounds in one week. If you experience any difficulty breathing, please call 911 BLEEDING: Although the risk of bleeding is minimal, it can happen. If you have any bleeding from the site, apply firm pressure above the puncture site for 10-15 minutes. If the bleeding does not stop, continue manual pressure and call 911 Contact [facility] ( ) if: You develop a fever greater than 101 degrees Fahrenheit Your site becomes reddened or has any drainage You have an increase in pain or burning at the site or if a large knot forms at the site. If you experience chest pain, shortness of breath, dizziness, or extreme tiredness, stop the activity and rest. Please notify [facility] office if you experience any of these symptoms and they are not relieved by rest please call 911! - Diet and Activity Activity: resume usual activities as tolerated - VTE Deep Vein Thrombosis/Pulmonary Embolism Present on Admission: No
== END 2017-11-21 14:33 | disposition home or self-care (01) | DRG 246 ==
LOC: EMEROO 05:02 → 2ANU 05:02 → SUATTDRO 16:52
PROVIDERS: ADMIT Pediatrics; ATTEND Internal Medicine

== ENCOUNTER 2021-04-12 15:16 | Inpatient (IN) ==
[2021-04-12] MEDS ORDERED: Nitroglycerin 0.4 MG TAB.SUBL SL PRN (15:28)
[2021-04-12] MEDS ORDERED: Aspirin 81 MG TAB.CHEW PO ONE (15:29)
[2021-04-12 16:08] LABS: Basophils % 0.3 %; Eosinophils # 0.1 K/mcL (0.0-0.6); Eosinophils % 0.5 %; Hematocrit 44.1 % (37.5-50.1); Hemoglobin 15.9 g/dL (12.9-16.9); Immature Granulocytes % 0.4 % (0-4); Lymphocytes # 2.5 K/mcL (0.6-4.6); Lymphocytes % 23.9 %; Mean Corpuscular HGB Conc 36.1 g/dL (31.6-35.5); Mean Corpuscular Hemoglobin 34.9 pg (28.0-33.3); Mean Corpuscular Volume 96.7 fL (83.0-100.0); Mean Platelet Volume 10.3 fL (9.4-12.4); Monocytes # 0.5 K/mcL (0.0-1.3); Monocytes % 5.3 %; Neutrophils # 7.2 K/mcL (1.6-8.9); Platelet Count 169 K/mcL (140-400); Red Blood Count 4.56 M/mcL (4.19-5.50); Red Cell Distribution Width 12.3 % (11.5-14.5); Segmented Neutrophils % 69.6 %; White Blood Count 10.3 K/mcL (4.3-11.1)
[2021-04-12 16:15] LABS: INR 1.1; Prothrombin Time 12.1 Seconds (9.4-12.1)
[2021-04-12 16:31] LABS: BUN/Creatinine Ratio 15 (6-26); Blood Urea Nitrogen 13 mg/dL (6-20); Calcium 9.3 mg/dL (8.6-10.3); Carbon Dioxide 24 mEq/L (23-29); Chloride 105 mEq/L (98-107); Glucose 114 mg/dL (70-105); Osmolality,Calculated 287 (280-300); Potassium 3.7 mEq/L (3.5-5.1); Sodium 138 mEq/L (136-145); Troponin I 0.14 ng/mL (< 0.04); eGFR For African Americans > 60 (> 60); eGFR For Non-African Americans > 60 (> 60)
[2021-04-12] MEDS ORDERED: *HR* Heparin 5,000 UNIT/ML VIAL IVP ONE (16:50)
[2021-04-12] MEDS ORDERED: *HR* Heparin 5,000 UNIT/ML VIAL IVP PRN (16:50)
[2021-04-12] MEDS ORDERED: *HR* OxyCODONE Immed Rel 15 MG TABLET PO PRN (17:14)
[2021-04-12] MEDS ORDERED: Morphine Sulfate 2 MG/ML SYRINGE IVP PRN (17:16)
[2021-04-12] MEDS ORDERED: Perflutren Lipid Microsphere 1.3 ML in 0.9 % Sodium Chloride 8.7 ML IVP PRN (17:16)
[2021-04-12] MEDS ORDERED: Acetaminophen 325 MG TABLET PO PRN (17:17)
[2021-04-12] MEDS ORDERED: Naloxone 0.4 MG/ML INJ IVP PRN (17:17)
[2021-04-12] MEDS ORDERED: Melatonin 3 MG TABLET PO PRN (17:17)
[2021-04-12 17:36] LABS: Hematocrit 45.8 % (37.5-50.1); Hemoglobin 15.6 g/dL (12.9-16.9); Mean Corpuscular HGB Conc 34.1 g/dL (31.6-35.5); Mean Corpuscular Hemoglobin 33.3 pg (28.0-33.3); Mean Corpuscular Volume 97.9 fL (83.0-100.0); Mean Platelet Volume 10.3 fL (9.4-12.4); Platelet Count 177 K/mcL (140-400); Red Blood Count 4.68 M/mcL (4.19-5.50); Red Cell Distribution Width 12.4 % (11.5-14.5); White Blood Count 11.3 K/mcL (4.3-11.1)
[2021-04-12 17:46] LABS: Heparin anti-factor XA UFH < 0.04 IU/mL (0.30-0.70); INR 1.1; Prothrombin Time 11.8 Seconds (9.4-12.1)
[2021-04-12 17:49] LABS: Activated Partial Thrombo Time 46.7 Seconds (26.0-36.0)
[2021-04-12] MEDS: Heparin 25,000UNIT/250ML 1/2NS 25,000 UNIT/250 ML IV.SOLN IVC SCH (18:12)
[2021-04-12] MEDS: *HR* Ticagrelor 90 MG TABLET PO SCH (21:46)
[2021-04-12] MEDS: Nicotine 21 MG PATCH.TD24 TD SCH (23:08)
[2021-04-13 00:32] LABS: Basophils % 0.4 %; Eosinophils # 0.1 K/mcL (0.0-0.6); Eosinophils % 1.7 %; Hematocrit 45.1 % (37.5-50.1); Hemoglobin 15.8 g/dL (12.9-16.9); Immature Granulocytes % 0.1 % (0-4); Lymphocytes # 3.8 K/mcL (0.6-4.6); Lymphocytes % 45.3 %; Mean Corpuscular Hemoglobin 34.9 pg (28.0-33.3); Mean Corpuscular Volume 99.6 fL (83.0-100.0); Mean Platelet Volume 10.2 fL (9.4-12.4); Monocytes # 0.5 K/mcL (0.0-1.3); Monocytes % 5.7 %; Neutrophils # 3.9 K/mcL (1.6-8.9); Platelet Count 173 K/mcL (140-400); Red Blood Count 4.53 M/mcL (4.19-5.50); Red Cell Distribution Width 12.5 % (11.5-14.5); Segmented Neutrophils % 46.8 %; White Blood Count 8.4 K/mcL (4.3-11.1)
[2021-04-13 00:42] LABS: Prothrombin Time 11.2 Seconds (9.4-12.1)
[2021-04-13 00:52] LABS: Alanine Aminotransferase 38 Units/L (7-52); Albumin 3.8 g/dL (3.5-5.7); Albumin/Globulin Ratio 1.3 (1.1-2.2); Alkaline Phosphatase 97 Units/L (34-104); Aspartate Amino Transferase 18 Units/L (13-39); BUN/Creatinine Ratio 13 (6-26); Bilirubin,Total 0.3 mg/dL (0.3-1.0); Blood Urea Nitrogen 16 mg/dL (6-20); Carbon Dioxide 24 mEq/L (23-29); Chloride 104 mEq/L (98-107); Chol/HDL Ratio 9.5 (0-4.9); Cholesterol 341 mg/dL (< 200); Globulin 2.9 g/dL (2.4-3.5); Glucose 115 mg/dL (70-105); HDL Cholesterol 36 mg/dL (40-59); Osmolality,Calculated 286 (280-300); Potassium 3.8 mEq/L (3.5-5.1); Sodium 137 mEq/L (136-145); Total Protein 6.7 g/dL (6.4-8.9); Triglycerides 970 mg/dL (< 150); eGFR For African Americans > 60 (> 60); eGFR For Non-African Americans > 60 (> 60)
[2021-04-13] MEDS: *HR* Heparin 5,000 UNIT/ML VIAL IVP PRN ×2 (01:25→07:32)
[2021-04-13 04:27] LABS: Estimated Average Glucose 126 mg/dl
[2021-04-13] MEDS: Metoprolol XL (24 HR) Succ 25 MG TAB.ER.24H PO SCH (09:27)
[2021-04-13] MEDS: *HR* Ticagrelor 90 MG TABLET PO SCH (09:27)
[2021-04-13] MEDS: Aspirin 81 MG TAB.CHEW PO SCH (09:27)
[2021-04-13] MEDS: lisinopriL 5 MG TABLET PO SCH (09:27)
[2021-04-13] MEDS ORDERED: 0.9 % Sodium Chloride 2,000 ML ONE (14:14)
[2021-04-13] MEDS ORDERED: *HR* Heparin 10,000 UNIT/10 ML VIAL ONE ×2 (14:14→15:02)
[2021-04-13] MEDS ORDERED: *HR* Midazolam HCl 2 MG/2 ML VIAL ONE ×2 (14:14→15:07)
[2021-04-13] MEDS ORDERED: ISOVUE-370 200 ML INFUS..BTL ONE ×2 (14:14→15:38)
[2021-04-13] MEDS ORDERED: *HR* FentaNYL (PF) 100 MCG/2 ML VIAL ONE ×2 (14:14→16:01)
[2021-04-13] MEDS ORDERED: Heparin 1,000 UNITS/500 mL 500 ML ONE (14:14)
[2021-04-13] MEDS ORDERED: Nitroglycerin 1,000 MCG/5 ML VIAL IV ONE ×2 (14:14→16:08)
[2021-04-13] MEDS ORDERED: *HR* Adenosine 6 MG/2 ML VIAL IVP ONE (15:14)
[2021-04-13] MEDS ORDERED: Tirofiban 5 MG/100 mL 5 MG/100 ML VIAL IV ONE (16:22)
[2021-04-13] MEDS: Heparin 25,000UNIT/250ML 1/2NS 25,000 UNIT/250 ML IV.SOLN IVC SCH (17:40)
[2021-04-13] MEDS: Nicotine 21 MG PATCH.TD24 TD SCH (22:11)
[2021-04-14 07:02] VITALS: BP 108/65; PULSE 83; TEMP 98.3; O2SAT 94
[2021-04-14] MEDS: lisinopriL 5 MG TABLET PO SCH (07:54)
[2021-04-14] MEDS: Metoprolol XL (24 HR) Succ 25 MG TAB.ER.24H PO SCH (07:54)
[2021-04-14] MEDS: Aspirin 81 MG TAB.CHEW PO SCH (07:54)
[2021-04-14 09:34] LABS: Basophils % 0.4 %; Eosinophils # 0.1 K/mcL (0.0-0.6); Eosinophils % 0.6 %; Hematocrit 43.8 % (37.5-50.1); Hemoglobin 15.1 g/dL (12.9-16.9); Immature Granulocytes % 0.3 % (0-4); Lymphocytes # 2.6 K/mcL (0.6-4.6); Lymphocytes % 26.1 %; Mean Corpuscular HGB Conc 34.5 g/dL (31.6-35.5); Mean Corpuscular Volume 98.6 fL (83.0-100.0); Mean Platelet Volume 10.2 fL (9.4-12.4); Monocytes # 0.6 K/mcL (0.0-1.3); Monocytes % 5.8 %; Neutrophils # 6.7 K/mcL (1.6-8.9); Platelet Count 163 K/mcL (140-400); Red Blood Count 4.44 M/mcL (4.19-5.50); Red Cell Distribution Width 12.7 % (11.5-14.5); Segmented Neutrophils % 66.8 %
[2021-04-14 09:57] LABS: BUN/Creatinine Ratio 17 (6-26); Blood Urea Nitrogen 16 mg/dL (6-20); Calcium 9.1 mg/dL (8.6-10.3); Carbon Dioxide 23 mEq/L (23-29); Chloride 107 mEq/L (98-107); Glucose 160 mg/dL (70-105); Osmolality,Calculated 289 (280-300); Sodium 137 mEq/L (136-145); eGFR For African Americans > 60 (> 60); eGFR For Non-African Americans > 60 (> 60)
== END 2021-04-14 11:51 | disposition home or self-care (01) | DRG 246 ==
LOC: EMEROOARM 15:16 → 3BNU 15:16 → SUATTDRO 17:15 → 3BNU 18:42
PROVIDERS: ADMIT Internal Medicine; ATTEND Registered Nurse

== ENCOUNTER 2021-08-30 17:41 | Inpatient (IN) ==
[2021-08-30 19:55] LABS: Basophils % 0.4 %; Eosinophils # 0.1 K/mcL (0.0-0.6); Eosinophils % 1.3 %; Hematocrit 45.2 % (37.5-50.1); Hemoglobin 15.2 g/dL (12.9-16.9); Immature Granulocytes % 0.2 % (0-4); Lymphocytes # 3.6 K/mcL (0.6-4.6); Lymphocytes % 34.8 %; Mean Corpuscular HGB Conc 33.6 g/dL (31.6-35.5); Mean Corpuscular Hemoglobin 33.7 pg (28.0-33.3); Mean Corpuscular Volume 100.2 fL (83.0-100.0); Mean Platelet Volume 10.2 fL (9.4-12.4); Monocytes # 0.6 K/mcL (0.0-1.3); Monocytes % 5.3 %; Platelet Count 204 K/mcL (140-400); Red Blood Count 4.51 M/mcL (4.19-5.50); Red Cell Distribution Width 12.3 % (11.5-14.5); White Blood Count 10.4 K/mcL (4.3-11.1)
[2021-08-30 20:06] LABS: Prothrombin Time 11.4 Seconds (9.4-12.1)
[2021-08-30 20:08] LABS: Activated Partial Thrombo Time 44.5 Seconds (26.0-36.0)
[2021-08-30] MEDS ORDERED: Aspirin 325 MG TABLET PO ONE (20:09)
[2021-08-30 20:17] LABS: BUN/Creatinine Ratio 10 (6-26); Blood Urea Nitrogen 9 mg/dL (6-20); Calcium 9.3 mg/dL (8.6-10.3); Carbon Dioxide 27 mEq/L (23-29); Chloride 103 mEq/L (98-107); Glucose 132 mg/dL (70-105); Osmolality,Calculated 287 (280-300); Potassium 3.8 mEq/L (3.5-5.1); Sodium 138 mEq/L (136-145); eGFR For African Americans > 60 (> 60); eGFR For Non-African Americans > 60 (> 60)
[2021-08-30 20:27] LABS: Troponin I 0.19 ng/mL (< 0.04)
[2021-08-30] MEDS ORDERED: *HR* Heparin 5,000 UNIT/ML VIAL IVP PRN (21:33)
[2021-08-30] MEDS ORDERED: *HR* Heparin 5,000 UNIT/ML VIAL IVP ONE (21:33)
[2021-08-30] MEDS ORDERED: Naloxone 0.4 MG/ML INJ IVP PRN (21:34)
[2021-08-30] MEDS ORDERED: Melatonin 3 MG TABLET PO PRN (21:34)
[2021-08-30] MEDS ORDERED: Perflutren Lipid Microsphere 1.3 ML in 0.9 % Sodium Chloride 8.7 ML IVP PRN (22:40)
[2021-08-30] MEDS: Heparin 25,000UNIT/250ML 1/2NS 25,000 UNIT/250 ML IV.SOLN IVC SCH (23:16)
[2021-08-31] MEDS: Nicotine 21 MG PATCH.TD24 TD SCH ×2 (00:27→21:59)
[2021-08-31 02:25] LABS: Hematocrit 42.2 % (37.5-50.1); Hemoglobin 14.6 g/dL (12.9-16.9); Mean Corpuscular HGB Conc 34.6 g/dL (31.6-35.5); Mean Corpuscular Hemoglobin 33.1 pg (28.0-33.3); Mean Corpuscular Volume 95.7 fL (83.0-100.0); Mean Platelet Volume 10.4 fL (9.4-12.4); Platelet Count 192 K/mcL (140-400); Red Blood Count 4.41 M/mcL (4.19-5.50); Red Cell Distribution Width 12.1 % (11.5-14.5)
[2021-08-31 02:40] LABS: BUN/Creatinine Ratio 10 (6-26); Blood Urea Nitrogen 9 mg/dL (6-20); Calcium 8.8 mg/dL (8.6-10.3); Carbon Dioxide 27 mEq/L (23-29); Chloride 106 mEq/L (98-107); Glucose 158 mg/dL (70-105); Magnesium 1.9 mg/dL (1.6-2.6); Osmolality,Calculated 290 (280-300); Phosphorous 3.5 mg/dL (2.7-4.5); Potassium 3.7 mEq/L (3.5-5.1); Sodium 139 mEq/L (136-145); eGFR For African Americans > 60 (> 60); eGFR For Non-African Americans > 60 (> 60)
[2021-08-31] MEDS: *HR* Heparin 5,000 UNIT/ML VIAL IVP PRN ×3 (06:23→21:58)
[2021-08-31] MEDS ORDERED: *HR* OxyCODONE Immed Rel 15 MG TABLET PO PRN (07:57)
[2021-08-31] MEDS: Aspirin 81 MG TAB.CHEW PO SCH (08:15)
[2021-08-31] MEDS: Metoprolol XL (24 HR) Succ 50 MG TAB.ER.24H PO SCH (08:15)
[2021-08-31] MEDS ORDERED: Nitroglycerin 0.4 MG TAB.SUBL SL PRN (12:09)
[2021-08-31] MEDS: Isosorbide MONOnitrate (24 HR) 60 MG TAB.ER.24H PO SCH (15:05)
[2021-08-31] MEDS: Heparin 25,000UNIT/250ML 1/2NS 25,000 UNIT/250 ML IV.SOLN IVC SCH (20:53)
[2021-08-31] MEDS: Gabapentin 300 MG CAPSULE PO SCH (20:53)
[2021-09-01 05:18] LABS: Basophils % 0.5 %; Eosinophils # 0.1 K/mcL (0.0-0.6); Eosinophils % 1.5 %; Hematocrit 43.3 % (37.5-50.1); Hemoglobin 14.9 g/dL (12.9-16.9); Immature Granulocytes % 0.4 % (0-4); Lymphocytes # 3.8 K/mcL (0.6-4.6); Lymphocytes % 45.1 %; Mean Corpuscular HGB Conc 34.4 g/dL (31.6-35.5); Mean Corpuscular Hemoglobin 33.3 pg (28.0-33.3); Mean Corpuscular Volume 96.9 fL (83.0-100.0); Mean Platelet Volume 10.4 fL (9.4-12.4); Monocytes # 0.5 K/mcL (0.0-1.3); Monocytes % 5.8 %; Platelet Count 193 K/mcL (140-400); Red Blood Count 4.47 M/mcL (4.19-5.50); Red Cell Distribution Width 12.2 % (11.5-14.5); Segmented Neutrophils % 46.7 %; White Blood Count 8.5 K/mcL (4.3-11.1)
[2021-09-01 05:38] LABS: BUN/Creatinine Ratio 14 (6-26); Blood Urea Nitrogen 11 mg/dL (6-20); Calcium 8.9 mg/dL (8.6-10.3); Carbon Dioxide 22 mEq/L (23-29); Chloride 103 mEq/L (98-107); Glucose 114 mg/dL (70-105); Magnesium 1.9 mg/dL (1.6-2.6); Osmolality,Calculated 286 (280-300); Phosphorous 3.7 mg/dL (2.7-4.5); Potassium 4.2 mEq/L (3.5-5.1); Sodium 138 mEq/L (136-145); eGFR For African Americans > 60 (> 60); eGFR For Non-African Americans > 60 (> 60)
[2021-09-01] MEDS: Isosorbide MONOnitrate (24 HR) 60 MG TAB.ER.24H PO SCH (08:20)
[2021-09-01] MEDS: Metoprolol XL (24 HR) Succ 50 MG TAB.ER.24H PO SCH (08:20)
[2021-09-01] MEDS: Aspirin 81 MG TAB.CHEW PO SCH (08:20)
[2021-09-01] MEDS: Heparin 25,000UNIT/250ML 1/2NS 25,000 UNIT/250 ML IV.SOLN IVC SCH (10:13)
[2021-09-01] MEDS ORDERED: *HR* Heparin 10,000 UNIT/10 ML VIAL ONE ×2 (15:06→15:54)
[2021-09-01] MEDS ORDERED: ISOVUE-370 200 ML INFUS..BTL ONE ×2 (15:06→15:56)
[2021-09-01] MEDS ORDERED: Nitroglycerin 1,000 MCG/5 ML VIAL IV ONE (15:06)
[2021-09-01] MEDS ORDERED: 0.9 % Sodium Chloride 2,000 ML ONE (15:06)
[2021-09-01] MEDS ORDERED: Heparin 1,000 UNITS/500 mL 500 ML ONE ×2 (15:06→15:56)
[2021-09-01] MEDS ORDERED: *HR* FentaNYL (PF) 100 MCG/2 ML VIAL ONE (15:11)
[2021-09-01] MEDS ORDERED: *HR* Midazolam HCl 2 MG/2 ML VIAL ONE (15:12)
[2021-09-01] MEDS: Gabapentin 300 MG CAPSULE PO SCH (19:39)
[2021-09-01] MEDS: Nicotine 21 MG PATCH.TD24 TD SCH (23:23)
[2021-09-02 05:29] LABS: Hematocrit 41.1 % (37.5-50.1); Hemoglobin 14.5 g/dL (12.9-16.9)
[2021-09-02 05:40] LABS: BUN/Creatinine Ratio 14 (6-26); Blood Urea Nitrogen 14 mg/dL (6-20); Carbon Dioxide 25 mEq/L (23-29); Chloride 105 mEq/L (98-107); Glucose 185 mg/dL (70-105); Magnesium 1.9 mg/dL (1.6-2.6); Osmolality,Calculated 291 (280-300); Phosphorous 2.9 mg/dL (2.7-4.5); Potassium 4.3 mEq/L (3.5-5.1); Sodium 138 mEq/L (136-145); eGFR For African Americans > 60 (> 60); eGFR For Non-African Americans > 60 (> 60)
[2021-09-02 06:42] VITALS: BP 126/77; PULSE 98; TEMP 98.4; O2SAT 94
[2021-09-02] MEDS: Metoprolol XL (24 HR) Succ 50 MG TAB.ER.24H PO SCH (08:53)
[2021-09-02] MEDS: Aspirin 81 MG TAB.CHEW PO SCH (08:53)
[2021-09-02] MEDS: Isosorbide MONOnitrate (24 HR) 60 MG TAB.ER.24H PO SCH (08:53)
[2021-09-02] MEDS ORDERED: Fluticasone Propionate Nasal 50 MCG/SPRAY BOTTLE NS SCH (09:00)
== END 2021-09-02 09:20 | disposition home or self-care (01) | DRG 249 ==
LOC: 3BNU 17:41 → EMEROOARM 17:41 → SUATTDRO 21:47 → 3BNU 22:48
PROVIDERS: ADMIT Internal Medicine; ATTEND Internal Medicine